=== PATIENT | male | born 1990 | race Asian ===

== ENCOUNTER 2020-08-07 09:37 | Emergency (ER) | payer SELFPAY ==
[~2020-08-07] VITALS: Ht 175.3 cm; Wt 81.6 kg
--- NOTE | 2020-08-07 10:15 | NUR ---
ED Nurse Note:pt. came with injured left big toe nail bed, VSS, given pain med, no open wound, no bleeding
--- NOTE | 2020-08-07 10:58 | Diagnostic Imaging Report ---
EXAM: XR Left Foot Complete, 3 or More Views CLINICAL HISTORY: PAIN TECHNIQUE: Frontal, lateral and oblique views of the left foot. COMPARISON: None FINDINGS: Bones/joints: No displaced fracture or dislocation identified. Joint space is maintained. No bony lesion. Soft tissues: Possible mild soft tissue swelling. IMPRESSION: No displaced fracture or dislocation identified.
[2020-08-07] MEDS ORDERED: IBUPROFEN600 M1 ORAL (11:20)
[2020-08-07] MEDS ORDERED: Bacitracin Oint UD TOPIC ONE (11:20)
[2020-08-07 11:25] VITALS: BP 126/90
--- NOTE | 2020-08-07 11:25 | NUR ---
ED Nurse Note: Pt cleared by health care Provider for discharge. DC instructions/prescription was given and explained to pt and verbalized understanding of teachings. All medical deviecs such as ID band removed. Pt is AAO x4, ambulatory and left with all personal belongings.
--- NOTE | 2020-08-07 11:32 | Emergency Room Report ---
History of Present Illness General Chief Complaint: Lower Extremity Injury Source: Patient Present Illness HPI 30-year-old male presents for evaluation. States he dropped a large plate on his left big toe yesterday. Presents with bruising and discoloration to the left big toe. Throbbing, 7 out of 10, nonradiating. denies any other injuries. no other aggravating relieving factors. Denies any other associated symptoms Allergies: Coded Allergies: No Known Allergies (Unverified , 08/07/20) COVID-19 Screening Contact w/high risk pt: No Experienced COVID-19 symptoms?: No COVID-19 Testing performed INDUSTRIAL HYGENIST: No Patient History Past Medical History: none Past Surgical History: none Pertinent Family History: none Social History: Denies: smoking, alcohol use, drug use Immunizations: UTD Reviewed Nursing Documentation: PMH: Agreed; PSxH: Agreed Nursing Documentation-PMH Past Medical History: No Stated History Review of Systems All Other Systems: negative except mentioned in HPI Physical Exam Vital Signs Date Time Temp Pulse Resp B/P (MAP) Pulse Ox O2 Delivery O2 Flow Rate FiO2 08/07/20 09:42 98.1 70 16 126/90 (102) 94 Room Air Sp02 EP Interpretation: reviewed, normal General Appearance: no apparent distress, alert, GCS 15, non-toxic Head: normocephalic, atraumatic Eyes: bilateral eye normal inspection, bilateral eye PERRL ENT: hearing grossly normal, normal pharynx, no angioedema, normal voice Neck: full range of motion, supple/symm/no masses Respiratory: chest non-tender, lungs clear, normal breath sounds, speaking full sentences Cardiovascular #1: regular rate, rhythm, no edema Cardiovascular #2: 2+ carotid (R), 2+ carotid (L), 2+ radial (R), 2+ radial (L), 2+ dorsalis pedis (R), 2+ dorsalis pedis (L) Gastrointestinal: normal bowel sounds, non tender, soft, non-distended, no guarding, no rebound Rectal: deferred Genitourinary: normal inspection, no CVA tenderness Musculoskeletal: back normal, normal range of motion, gait/station normal, tender - Tenderness left big toe. Discoloration of left big toenail Neurologic: alert, motor strength/tone normal, oriented x3, sensory intact, responsive, speech normal Psychiatric: judgement/insight normal, memory normal, mood/affect normal, no suicidal/homicidal ideation Reflexes: 3+ bicep (R), 3+ bicep (L), 3+ tricep (R), 3+ tricep (L), 3+ knee (R), 3+ knee (L) Lymphatic: no adenopathy Procedures Additional Procedure Procedure Narrative Subungual hematoma Patient placed on stretcher. Foot is draped/prepped in sterile fashion. I insert the cautery directly into the nail bed until no further ressistance is m et and blood is released. I then apply pressure, until all the blood is released, causing relief in pressure to the nailbed. Dressing applied. Patient tolerated procedure without complication Medical Decision Making Diagnostic Impression: Primary Impression: Subungual hematoma Additional Impression: Toe contusion Qualified Codes: S90.112A - Contusion of left great toe without damage to nail, initial encounter ER Course Hospital Course 30-year-old male presents with discoloration of left big toe after dropping large plate Differential-contusion, fracture, dislocation, subungual hematoma Clinical course Patient placed on stretcher. After initial history and physical I ordered pain medication and x-rays X-ray show no evidence of fracture Using cautery device I drained the subungual hematoma underneath the nail bed without difficulty. Patient notes immediate relief of pain and pressure. Dressing applied I discussed findings with patient. Safe for discharge close outpatient follow- up Diagnosis - subungual hematoma, toe contusion Stable and discharged to home with prescription for Motrin. wound Care instructions given. Followup with PMD. Return to ED if any signs of infection develop Other X-Ray Diagnostic Results Other X-Ray Diagnostic Results : X-Ray ordered: Left foot # of Views/Limited Vs Complete: 3 View Indication: Pain EP Interpretation: Yes Interpretation: no dislocation, no soft tissue swelling, no fractures Impression: No acute disease Electronically Signed by: Electronically signed by Francis Strange MD Last Vital Signs Date Time Temp Pulse Resp B/P (MAP) Pulse Ox O2 Delivery O2 Flow Rate FiO2 08/07/20 09:42 98.1 70 16 126/90 (102) 94 Room Air Status: improved Disposition: HOME, SELF-CARE Condition: Stable Scripts Ibuprofen* (MOTRIN*) 600 Mg Tablet 600 MG ORAL Q8H PRN for FOR PAIN, #20 TAB 0 Refills Prov: Francis Strange MD 08/07/20 Patient Instructions: Subungual Hematoma, [id number] Francis Strange MD Aug 07, 2020 11:32
== END 2020-08-07 11:31 | disposition home or self-care (01) ==
LOC: EMR 10:24
DX: S90.212A Contusion of left great toe with damage to nail, initial encounter (principal); W20.8XXA Other cause of strike by thrown, projected or falling object, initial encounter; Y92.9 Unspecified place or not applicable
CPT/HCPCS: 99283